=== PATIENT | female | born 1935 | race Caucasian/White ===

== ENCOUNTER 2023-11-30 08:00 | Outpatient (OUT) | payer MEDICARE, SELFPAY ==
--- NOTE | 2023-11-30 08:15 | XR_ITS ---
[address] [address] Patient Name: GABBY SAENZ MRN: [id number] date: 1935 Sex: F Assigned Patient Location: [facility] Current Patient Location: [facility] Accession/Order Number: [id number] Exam Date: 11/30/2023 08:20 Report Date: 11/30/2023 09:12 At the request of: LUCITA MULLER Procedure: XR DEXA axial skeleton EXAMINATION: XR DEXA axial skeleton HISTORY: Decreased Estrogen Level COMPARISON: DEXA bone densitometry 08/30/2021 TECHNIQUE: Dual-energy X-ray absorptiometry (DXA) was performed. FINDINGS: SPINE ANALYSIS: Average bone mineral density is 1.337 g/cm2. T-score (standard deviation relative to young adult mean): 1.3 . -8.8% change since prior study. HIP ANALYSIS: Lowest bone mineral density is within the left femoral neck, 0.743 g/cm2. T-score (standard deviation relative to young adult mean): -2.1 . -1.1% change since prior study. XR/XR DEXA axial skeleton IMPRESSION: World Health Organization Classification: Osteopenia - Moderate Fracture Risk FRAX: Cannot calculate. Pharmacologic treatment recommendations * No uniform recommendation applies to all patients. Management plans must be individualized. * Consider initiating pharmacologic treatment in postmenopausal women and men >= 50 years of age who have the following: Primary fracture prevention: * T-score <= - 2.5 at the femoral neck, total hip, lumbar spine, 33% radius (some uncertainty with existing data) by DXA. * Low bone mass (osteopenia: T-score between - 1.0 and - 2.5) at the femoral neck or total hip by DXA with a 10-year hip fracture risk >= 3% or a 10-year major osteoporosis-related fracture risk >= 20% (i.e., clinical vertebral, hip, forearm, or proximal humerus) based on the [place]-adapted FRAXregistered model. Secondary fracture prevention: * Fracture of the hip or vertebra regardless of BMD [4, 5]. * Fracture of proximal humerus, pelvis, or distal forearm in persons with low bone mass (osteopenia: T-score between - 1.0 and - 2.5). The decision to treat should be individualized in persons with a fracture of the proximal humerus, pelvis, or distal forearm who do not have osteopenia or low BMD [12, 13]. Gordon MS, Ash SL, Austin KL, Wil EM, Pamela KG, AJ, Brian ES. The clinician's guide to prevention and treatment of osteoporosis. Osteoporos Int. 2021;33(10):8876-1564. doi: 10.1007/t41719-865-94951-c. Epub 2021Jun 27. Erratum in: Osteoporos Int. 2021Sep 26;: PMID: [id number]; PMCID: [id number]. Electronically authenticated by: EFE SHOEMAKER Date: 11/30/2023 09:12
== END 2023-11-30 08:01 | disposition home or self-care (01) ==
LOC: RAD 08:05
PROVIDERS: PCP Internal Medicine; Visit Provider Internal Medicine
DX: Z00.00 Encounter for general adult medical examination without abnormal findings (principal); E28.39 Other primary ovarian failure; M85.80 Other specified disorders of bone density and structure, unspecified site
CPT/HCPCS: 77080